=== PATIENT | male | born 1945 | race Caucasian/White ===

== ENCOUNTER 2016-08-03 17:57 | Inpatient (IN) | payer OTHER, BC ==
[~2016-08-03] VITALS: Ht 170.2 cm; Wt 65.2 kg
[~2016-08-03 17:57] MED LIST: CELECOXIB200 MG PO; CIPROFLOXACIN500 M1 PO; CLONAZEPAM0.5 MG PO; FLOMAX0.4 MG PO; LEXAPRO10 MG PO; LISINOPRIL20 MG PO; LISINOPRIL40 MG PO; MOBIC7.5 MG PO; PRESERVISION T1 EACH PO; PROPRANOLOL HCL40 MG PO; SERTRALINE HCL100 MG PO; SERTRALINE HCL50 MG PO; SIMVASTATIN40 MG PO; TIZANIDINE HCL2 MG PO; TYLENOL EXTRA500 MG PO; ZOLPIDEM TARTRA10 MG PO; ZOLPIDEM TARTRAT5 MG PO
[2016-08-03 18:21] LABS: HEMATOCRIT 41.7 % (38.0-50.0); MCHC 33.8 G/DL (30.0-36.0); MCV 85.8 FL (86-99); MEAN PLAT.VOLUME 9.1 uM^3 (9.0-12.4); PLATELET COUNT 344 K/uL (156-360); RBC DIS.WIDTH-CV 12.3 % (11.8-14.6); RBC DIS.WIDTH-SD 38.5 % (39-53); RED BLOOD COUNT 4.86 M/uL (4.00-5.50); WHITE BLOOD COUNT 11.8 K/uL (4.1-10.2)
[2016-08-03 18:29] LABS: CHLORIDE 112 mEq/L (99-109); POTASSIUM 4.4 mEq/L (3.7-5.4); SODIUM 146 mEq/L (136-147)
[2016-08-03 18:31] LABS: GLUCOSE 136 mg/dL (70-99)
[2016-08-03 18:32] LABS: ANION GAP 12 MEQ/L (2-14)
[2016-08-03 18:34] LABS: SERUM ETHYL ALCOHOL < 10 mg/dL
[2016-08-03 18:35] LABS: GFR ESTIMATE (CALCULATED) 58 mL/min/
[2016-08-03 18:36] LABS: UREA NITROGEN (BUN) 28 mg/dL (9-23)
[2016-08-03 19:09] LABS: SALICYLATE < 5.0 MG/DL (15-30)
[2016-08-03] MEDS ORDERED: FLOMAX0.4 MG PO (20:09)
[2016-08-03] MEDS ORDERED: PROPRANOLOL HCL20 MG PO (20:10)
[2016-08-03] MEDS ORDERED: AMBIEN10 MG PO (20:10)
[2016-08-03] MEDS ORDERED: PRIMIDONE50 MG PO (20:10)
[2016-08-03 21:53] LABS: SALICYLATE < 5.0 MG/DL (15-30)
[2016-08-04] VITALS (7 sets, daily range): BP systolic 122–167; BP diastolic 68–96
[2016-08-04 02:43] LABS: ADD MIUA? NO; BILIRUBIN NEGATIVE; BLOOD NEGATIVE; COLOR YELLOW ((YELLOW)); GLUCOSE (STRIP) NEGATIVE; KETONES 5; LEUKOCYTES NEGATIVE; NITRITE NEGATIVE; PROTEIN (STRIP) NEGATIVE; SPECIFIC GRAVITY 1.013 (1.000-1.030); UCUL ADDED? NO; UROBILINOGEN 0.2 MG/DL (0.2-1.0)
[2016-08-04 05:38] LABS: AMPHETAMINES QUANT VALUE 0 NG/ML; BARBITUATES QUANT VALUE 0 NG/ML; BENZODIAZEPINES QUANT VALUE 0 NG/ML; BENZODIAZEPINES, URINE SCREEN Negative (200 ng/mL); MARIJUANA QUANT VALUE 0 NG/ML; OPIATES QUANTITATIVE VALUE 0 NG/ML; PHENCYCLIDINE QUANT VALUE 0 NG/ML
[2016-08-04 07:24] LABS: HEMATOCRIT 31.6 % (38.0-50.0); MCHC 32.9 G/DL (30.0-36.0); RBC DIS.WIDTH-SD 41.8 % (39-53)
[2016-08-04 07:30] LABS: ALKALINE PHOSPHATASE 56 IU/L (3-129); ANION GAP 8 MEQ/L (2-14); CHLORIDE 114 MEQ/L (99-109); GFR ESTIMATE (CALCULATED) > 59 mL/min/; GLUCOSE 108 mg/dL (70-99); POTASSIUM 3.9 MEQ/L (3.7-5.4); SAMPLE HEMOLYSIS CHECK 0; SAMPLE ICTERIC CHECK 0; SAMPLE LIPEMIA CHECK 0; SODIUM 144 MEQ/L (136-147); UREA NITROGEN (BUN) 18 mg/dL (9-23)
[2016-08-04 07:34] LABS: RED BLOOD COUNT 3.59 M/uL (4.00-5.50)
[2016-08-04 07:35] LABS: ANION GAP 8 MEQ/L (2-14); CHLORIDE 114 MEQ/L (99-109); GFR ESTIMATE (CALCULATED) > 59 mL/min/; GLUCOSE 108 mg/dL (70-99); POTASSIUM 3.9 MEQ/L (3.7-5.4); SODIUM 144 MEQ/L (136-147); UREA NITROGEN (BUN) 18 mg/dL (9-23)
[2016-08-04 07:37] LABS: EOSINOPHIL (%) 1.6 % (0-5); EOSINOPHIL COUNT 0.2 K/uL (0-0.3); IMMATURE GRANULOCYTE (%) 0.5 % (0.0-0.7); IMMATURE GRANULOCYTE COUNT 0.1 K/uL; INSTRUMENT ABS NEUTROPHIL CT 8.2 K/uL; LYMPHOCYTE COUNT 1.5 K/uL (1.0-2.8); MEAN PLAT.VOLUME 9.7 uM^3 (9.0-12.4); MONOCYTE (%) 8.8 % (3-12); NEUTROPHIL (%) 74.7 % (45-76); NEUTROPHIL COUNT 8.2 K/uL (1.8-6.4); PLAT.SUFFICIENCY ADEQUATE
[2016-08-04 07:38] LABS: PLATELET COUNT 200 K/uL (156-360)
[2016-08-05 04:13] VITALS: BP 145/83
[2016-08-05 06:59] LABS: HEMATOCRIT 32.6 % (38.0-50.0); MCH 28.9 PG (29.0-34.0); MCHC 33.4 G/DL (30.0-36.0); MCV 86.5 FL (86-99); MEAN PLAT.VOLUME 9.7 uM^3 (9.0-12.4); PLATELET COUNT 218 K/uL (156-360); RBC DIS.WIDTH-CV 12.8 % (11.8-14.6); RBC DIS.WIDTH-SD 40.5 % (39-53); RED BLOOD COUNT 3.77 M/uL (4.00-5.50); WHITE BLOOD COUNT 9.9 K/uL (4.1-10.2)
[2016-08-05 07:25] LABS: ANION GAP 9 MEQ/L (2-14); CHLORIDE 103 MEQ/L (99-109); GFR ESTIMATE (CALCULATED) > 59 mL/min/; GLUCOSE 89 mg/dL (70-99); POTASSIUM 3.4 MEQ/L (3.7-5.4); SAMPLE HEMOLYSIS CHECK 0; SAMPLE ICTERIC CHECK 0; SAMPLE LIPEMIA CHECK 0; SODIUM 139 MEQ/L (136-147); UREA NITROGEN (BUN) 7 mg/dL (9-23)
[2016-08-05 07:52] VITALS: BP 131/68
[2016-08-05 11:32] VITALS: BP 144/81
[2016-08-05 16:01] VITALS: BP 167/86
[2016-08-05 16:17] LABS: D-DIMER ELISA 1.92 mg/L FEU (< 0.57)
[2016-08-05 16:30] LABS: TROP-I INTERPRETATION NEGATIVE; TROPONIN-I < 0.01 ng/mL (0.0-0.30)
[2016-08-05 16:33] LABS: C DIFF TOXIN POSITIVE (NEGATIVE)
[2016-08-05 16:40] LABS: PROBE CHECK PASS
[2016-08-05 19:38] VITALS: BP 123/76
[2016-08-05 20:17] LABS: ADD MIUA? YES; BILIRUBIN NEGATIVE; BLOOD MODERATE; COLOR STRAW ((YELLOW)); GLUCOSE (STRIP) NEGATIVE; KETONES NEGATIVE; LEUKOCYTES NEGATIVE; NITRITE NEGATIVE; PROTEIN (STRIP) NEGATIVE; SPECIFIC GRAVITY 1.002 (1.000-1.030); UROBILINOGEN 0.2 MG/DL (0.2-1.0)
[2016-08-05 20:36] LABS: BACTERIA RARE /HPF; EPITHELIAL CELLS NONE SEEN /HPF; MUCUS TRACE /LPF; RED BLOOD CELLS 30-40 /HPF (0-5); UCUL ADDED? NO
[2016-08-06 00:28] VITALS: BP 109/62
[2016-08-06 04:18] VITALS: BP 128/60
[2016-08-06 05:51] LABS: HEMATOCRIT 31.9 % (38.0-50.0); MCH 29.7 PG (29.0-34.0); MCHC 34.5 G/DL (30.0-36.0); MCV 86.2 FL (86-99); MEAN PLAT.VOLUME 9.5 uM^3 (9.0-12.4); PLATELET COUNT 204 K/uL (156-360); RBC DIS.WIDTH-CV 12.6 % (11.8-14.6); RBC DIS.WIDTH-SD 39.8 % (39-53); WHITE BLOOD COUNT 11.3 K/uL (4.1-10.2)
[2016-08-06 06:25] LABS: ANION GAP 9 MEQ/L (2-14); CHLORIDE 103 MEQ/L (99-109); GFR ESTIMATE (CALCULATED) > 59 mL/min/; GLUCOSE 98 mg/dL (70-99); POTASSIUM 3.2 MEQ/L (3.7-5.4); SAMPLE HEMOLYSIS CHECK 0; SAMPLE ICTERIC CHECK 0; SAMPLE LIPEMIA CHECK 0; SODIUM 138 MEQ/L (136-147); UREA NITROGEN (BUN) 7 mg/dL (9-23)
[2016-08-06 07:46] VITALS: BP 114/64
[2016-08-06 11:23] VITALS: BP 120/69
[2016-08-06 14:54] VITALS: BP 145/75
[2016-08-06 20:00] VITALS: BP 156/89
[2016-08-07] VITALS: BP 126/64
[2016-08-07 07:35] LABS: HEMATOCRIT 29.7 % (38.0-50.0); MCH 28.9 PG (29.0-34.0); MCHC 33.3 G/DL (30.0-36.0); MCV 86.8 FL (86-99); MEAN PLAT.VOLUME 9.1 uM^3 (9.0-12.4); PLATELET COUNT 216 K/uL (156-360); RBC DIS.WIDTH-CV 13.1 % (11.8-14.6); RBC DIS.WIDTH-SD 41.2 % (39-53); RED BLOOD COUNT 3.42 M/uL (4.00-5.50)
[2016-08-07 07:36] LABS: WHITE BLOOD COUNT 5.4 K/uL (4.1-10.2)
[2016-08-07 08:00] VITALS: BP 142/78
[2016-08-07 11:32] VITALS: BP 118/64
[2016-08-08] VITALS: BP 139/68
[2016-08-08 09:44] VITALS: BP 120/78
[2016-08-08 12:05] VITALS: BP 140/70
[2016-08-08] MEDS ORDERED: FLUOXETINE HCL20 MG PO (16:03)
[2016-08-08] MEDS ORDERED: OLANZAPINE5 MG PO (16:03)
[2016-08-08] MEDS ORDERED: PANTOPRAZOLE SO40 MG PO (16:03)
[2016-08-08] MEDS ORDERED: METRONIDAZOLE500 MG PO (16:04)
[2016-08-08] MEDS ORDERED: PEN-VEE K,VEET500 MG PO (16:04)
[2016-08-08] MEDS ORDERED: TAMSULOSIN HCL0.4 MG PO (16:04)
[2016-08-08] MEDS ORDERED: ELIQUIS5 MG PO ×2 (16:06→16:07)
[2016-08-08 17:46] VITALS: BP 147/78
[2016-08-09] VITALS: BP 124/75
[2016-08-09 05:37] VITALS: BP 146/77
[2016-08-09 06:58] LABS: HEMATOCRIT 31.6 % (38.0-50.0); MCH 29.4 PG (29.0-34.0); MCHC 33.2 G/DL (30.0-36.0); MCV 88.5 FL (86-99); PLATELET COUNT 265 K/uL (156-360); RBC DIS.WIDTH-CV 12.9 % (11.8-14.6); RED BLOOD COUNT 3.57 M/uL (4.00-5.50); WHITE BLOOD COUNT 6.1 K/uL (4.1-10.2)
[2016-08-09 07:51] VITALS: BP 140/74
[2016-08-09 12:42] VITALS: BP 148/68
[2016-08-09] MEDS ORDERED: VANCOMYCIN HCL125 MG PO (15:55)
[2016-08-09] MEDS ORDERED: PEN-VEE K,VEET500 MG PO (15:55)
[2016-08-09 16:20] VITALS: BP 136/70
== END 2016-08-09 18:35 | DRG 917 ==
LOC: EME 17:57 → 5WEST 21:42 → EDOF 21:42 → 5WEST 23:16 → 5SOUTH 08-04 10:53 → 5WEST 08-04 10:53 → 5SOUTH 08-04 16:11
PROVIDERS: Emergency Medicine; Hospitalist; Physician Assistant Medical; Specialist
PROC: 0DJ08ZZ Inspection of Upper Intestinal Tract, Via Natural or Artificial Opening Endoscopic (ICD-10-PCS; principal; 2016-08-04)
DX: T54.3X2A Toxic effect of corrosive alkalis and alkali-like substances, intentional self-harm, initial encounter (principal); T65.892A Toxic effect of other specified substances, intentional self-harm, initial encounter; T28.6XXA Corrosion of esophagus, initial encounter; T28.7XXA Corrosion of other parts of alimentary tract, initial encounter; J18.9 Pneumonia, unspecified organism; I26.99 Other pulmonary embolism without acute cor pulmonale; N17.9 Acute kidney failure, unspecified; A04.7 Enterocolitis due to Clostridium difficile; G80.1 Spastic diplegic cerebral palsy; G80.4 Ataxic cerebral palsy; I95.9 Hypotension, unspecified; I10 Essential (primary) hypertension; R13.10 Dysphagia, unspecified; E78.5 Hyperlipidemia, unspecified; F32.9 Major depressive disorder, single episode, unspecified; N40.1 Benign prostatic hyperplasia with lower urinary tract symptoms; R33.9 Retention of urine, unspecified; K29.80 Duodenitis without bleeding; Z91.5 Personal history of self-harm; Z66 Do not resuscitate
CPT/HCPCS: 71010; 71275; 74020; 74177; 74230; 80048; 80053; 80306 90; 81003; 83605; 84484; 85025; 85027; 85379; 85730; 87040; 87493; 92610 GN; 92611 GN; 93005; 99281; 99285; C9113; G0378; G0480; J0456; J0696; J1644; J7030; J7050

== ENCOUNTER 2016-08-09 17:12 | Inpatient (IN) | payer OTHER, BC ==
[~2016-08-09] VITALS: Ht 170.2 cm; Wt 65.2 kg
[~2016-08-09 17:12] MED LIST changes: +AMBIEN10 MG PO; +ELIQUIS5 MG PO; +FLUOXETINE HCL20 MG PO; +METRONIDAZOLE500 MG PO; +OLANZAPINE5 MG PO; +PANTOPRAZOLE SO40 MG PO; +PEN-VEE K,VEET500 MG PO; +PRIMIDONE50 MG PO; +PROPRANOLOL HCL20 MG PO; +TAMSULOSIN HCL0.4 MG PO; +VANCOMYCIN HCL125 MG PO
[2016-08-09 18:56] VITALS: BP 165/90
[2016-08-10 08:39] VITALS: BP 175/81
[2016-08-10 15:42] VITALS: BP 141/66
[2016-08-11 07:52] VITALS: BP 132/83
[2016-08-11 15:27] VITALS: BP 175/86
[2016-08-11 18:14] VITALS: BP 153/80
[2016-08-12 07:55] VITALS: BP 152/89
[2016-08-12] MEDS ORDERED: VANCOMYCIN HCL125 MG PO (10:06)
[2016-08-12] MEDS ORDERED: METRONIDAZOLE500 MG PO (10:06)
[2016-08-12] MEDS ORDERED: OLANZAPINE10 MG PO (10:07)
[2016-08-12] MEDS ORDERED: FLUOXETINE HCL20 MG PO (10:07)
== END 2016-08-12 12:12 | disposition home or self-care (01) | DRG 885 ==
LOC: 5SOUTH 17:12 → 1WEST 18:32
DX: F33.9 Major depressive disorder, recurrent, unspecified (principal); I10 Essential (primary) hypertension; G80.9 Cerebral palsy, unspecified; E78.5 Hyperlipidemia, unspecified; N40.0 Benign prostatic hyperplasia without lower urinary tract symptoms; M19.90 Unspecified osteoarthritis, unspecified site; T65.8 Toxic effect of other specified substances
CPT/HCPCS: 97150 GO; 97165 GO

== ENCOUNTER 2016-08-19 10:23 | Inpatient (IN) | payer OTHER, BC ==
[~2016-08-19] VITALS: Ht 172.7 cm; Wt 63.6 kg
[~2016-08-19 10:23] MED LIST changes: +OLANZAPINE10 MG PO
[2016-08-19 11:27] LABS: EOSINOPHIL (%) 1.3 % (0-5); EOSINOPHIL COUNT 0.1 K/uL (0-0.3); HEMATOCRIT 35.3 % (38.0-50.0); IMMATURE GRANULOCYTE (%) 0.5 % (0.0-0.7); IMMATURE GRANULOCYTE COUNT 0.1 K/uL; INSTRUMENT ABS NEUTROPHIL CT 8.7 K/uL; LYMPHOCYTE COUNT 1.5 K/uL (1.0-2.8); MCH 29.4 PG (29.0-34.0); MCHC 33.4 G/DL (30.0-36.0); MEAN PLAT.VOLUME 9.1 uM^3 (9.0-12.4); MONOCYTE (%) 6.1 % (3-12); MONOCYTE COUNT 0.7 K/uL (0-0.8); NEUTROPHIL (%) 78.7 % (45-76); NEUTROPHIL COUNT 8.7 K/uL (1.8-6.4); RBC DIS.WIDTH-CV 13.2 % (11.8-14.6); RBC DIS.WIDTH-SD 42.6 % (39-53); RED BLOOD COUNT 4.01 M/uL (4.00-5.50)
[2016-08-19 11:28] LABS: PLATELET COUNT 350 K/uL (156-360); WHITE BLOOD COUNT 11.1 K/uL (4.1-10.2)
[2016-08-19 11:34] LABS: CHLORIDE 104 mEq/L (99-109); POTASSIUM 4.6 mEq/L (3.7-5.4); SODIUM 135 mEq/L (136-147)
[2016-08-19 11:36] LABS: GLUCOSE 120 mg/dL (70-99)
[2016-08-19 11:37] LABS: ANION GAP 8 MEQ/L (2-14)
[2016-08-19 11:38] LABS: TOTAL BILIRUBIN 0.8 mg/dL (0.0-1.0)
[2016-08-19 11:39] LABS: SERUM ETHYL ALCOHOL < 10 mg/dL
[2016-08-19 11:40] LABS: GFR ESTIMATE (CALCULATED) > 59 mL/min/
[2016-08-19 11:41] LABS: ALKALINE PHOSPHATASE 58 IU/L (3-129)
[2016-08-19 11:42] LABS: DIRECT BILIRUBIN 0.3 mg/dL (0.0-0.3); UREA NITROGEN (BUN) 17 mg/dL (9-23)
[2016-08-19 11:43] LABS: SALICYLATE < 5.0 MG/DL (15-30)
[2016-08-19 16:36] LABS: ADD MIUA? YES; BILIRUBIN NEGATIVE; BLOOD NEGATIVE; COLOR YELLOW ((YELLOW)); GLUCOSE (STRIP) NEGATIVE; KETONES NEGATIVE; LEUKOCYTES SMALL; NITRITE NEGATIVE; PROTEIN (STRIP) NEGATIVE; SPECIFIC GRAVITY 1.023 (1.000-1.030); UROBILINOGEN 0.2 MG/DL (0.2-1.0)
[2016-08-19 16:41] LABS: BACTERIA NONE SEEN /HPF; EPITHELIAL CELLS NONE SEEN /HPF; MUCUS TRACE /LPF; RED BLOOD CELLS 0-5 /HPF (0-5); WHITE BLOOD CELLS 0-5 /HPF (0-5)
[2016-08-19 16:45] LABS: AMPHETAMINE NEGATIVE (500 ng/mL); BARBITURATES NEGATIVE (200 ng/mL); BENZODIAZEPINES NEGATIVE (150 ng/mL); COCAINE NEGATIVE (150 ng/mL); INTERNAL CONTROLS VALID? YES; METHADONE NEGATIVE (200 ng/mL); METHAMPHETAMINE NEGATIVE (500 ng/mL); OPIATES (MORPHINE) NEGATIVE (100 ng/mL); OXYCODONE NEGATIVE (100 ng/mL); PHENCYCLIDINE NEGATIVE (25 ng/mL); PROPOXYPHENE NEGATIVE (300 ng/mL); THC CANNABINOIDS NEGATIVE (50 ng/mL); TRICYCLIC ANTIDEPRESSANTS NEGATIVE (300 ng/mL)
[2016-08-20 20:54] LABS: C DIFF TOXIN NEGATIVE (NEGATIVE)
[2016-08-20 21:05] LABS: PROBE CHECK PASS; SPECIMEN PROCESSING CONTROL PASS
[2016-08-21 12:19] LABS: EOSINOPHIL (%) 0 % (0-5); HEMATOCRIT 37.8 % (38.0-50.0); IMMATURE GRANULOCYTE (%) 0.4 % (0.0-0.7); INSTRUMENT ABS NEUTROPHIL CT 7.6 K/uL; LYMPHOCYTE COUNT 0.8 K/uL (1.0-2.8); MCH 28.9 PG (29.0-34.0); MCHC 33.6 G/DL (30.0-36.0); MCV 85.9 FL (86-99); MEAN PLAT.VOLUME 9.2 uM^3 (9.0-12.4); MONOCYTE COUNT 0.7 K/uL (0-0.8); NEUTROPHIL (%) 82.5 % (45-76); NEUTROPHIL COUNT 7.6 K/uL (1.8-6.4); PLATELET COUNT 358 K/uL (156-360); RBC DIS.WIDTH-CV 13.3 % (11.8-14.6); RBC DIS.WIDTH-SD 41.4 % (39-53); WHITE BLOOD COUNT 9.2 K/uL (4.1-10.2)
[2016-08-21] MEDS ORDERED: ELIQUIS5 MG PO (12:38)
[2016-08-21] MEDS ORDERED: LEXAPRO10 MG PO (12:40)
[2016-08-21] MEDS ORDERED: TAMSULOSIN HCL0.4 MG PO (12:40)
[2016-08-21 12:41] LABS: CHLORIDE 103 mEq/L (99-109); POTASSIUM 3.7 mEq/L (3.7-5.4); SODIUM 139 mEq/L (136-147)
[2016-08-21 12:42] LABS: GLUCOSE 120 mg/dL (70-99)
[2016-08-21 12:44] LABS: ANION GAP 12 MEQ/L (2-14)
[2016-08-21 12:46] LABS: GFR ESTIMATE (CALCULATED) > 59 mL/min/
[2016-08-21 12:47] LABS: UREA NITROGEN (BUN) 11 mg/dL (9-23)
[2016-08-21 16:45] VITALS: BP 154/87
[2016-08-21 17:33] VITALS: BP 154/87
[2016-08-22 07:50] VITALS: BP 138/79
[2016-08-22 15:36] VITALS: BP 158/90
[2016-08-23 07:37] VITALS: BP 170/96
[2016-08-23 12:05] VITALS: BP 131/75
[2016-08-23 16:05] VITALS: BP 137/82
[2016-08-24 07:57] VITALS: BP 173/97
[2016-08-24 11:50] VITALS: BP 148/82
[2016-08-24 16:06] VITALS: BP 126/73
[2016-08-25 07:44] VITALS: BP 169/102
[2016-08-25 15:48] VITALS: BP 120/71
[2016-08-26 07:36] VITALS: BP 151/97
[2016-08-26] MEDS ORDERED: OLANZAPINE5 MG PO (11:35)
[2016-08-26] MEDS ORDERED: CLONAZEPAM0.5 MG PO (11:35)
== END 2016-08-26 13:20 | disposition home or self-care (01) | DRG 918 ==
LOC: EME 10:23 → EDOF 08-20 11:34 → 1WEST 08-21 11:34
PROVIDERS: Emergency Medicine
DX: T50.902A Poisoning by unspecified drugs, medicaments and biological substances, intentional self-harm, initial encounter (principal); F33.2 Major depressive disorder, recurrent severe without psychotic features; G80.9 Cerebral palsy, unspecified; M19.90 Unspecified osteoarthritis, unspecified site; I10 Essential (primary) hypertension; R25.2 Cramp and spasm; F41.9 Anxiety disorder, unspecified
CPT/HCPCS: 80048; 80076; 81003; 85025; 87493; 90837; 93005; 97150 GO; 97165 GO; 99281; 99285; G0480; J2405; J7030

== ENCOUNTER 2017-11-28 14:12 | Emergency (ER) | payer OTHER, BC ==
[~2017-11-28] VITALS: Ht 167.6 cm; Wt 57.7 kg
[2017-11-28] MEDS ORDERED: TRAZODONE HCL50 MG PO (14:27)
[2017-11-28] MEDS ORDERED: TIAGABINE HCL2 MG PO (14:30)
[2017-11-28] MEDS ORDERED: AMANTADINE100 MG PO (14:31)
[2017-11-28] MEDS ORDERED: DESYREL100 MG PO (15:43)
[2017-11-28] MEDS ORDERED: CLONAZEPAM0.5 MG PO (15:43)
[2017-11-28] MEDS ORDERED: GABITRIL2 MG PO ×2 (15:43→15:46)
[2017-11-28 15:46] LABS: BASOPHIL (%) 0.4 % (0-1); BASOPHIL COUNT 0.1 K/uL (0-0.1); EOSINOPHIL (%) 0.8 % (0-5); EOSINOPHIL COUNT 0.1 K/uL (0-0.3); HEMATOCRIT 40.5 % (38.0-50.0); HEMOGLOBIN 14.2 G/DL (12.5-16.6); IMMATURE GRANULOCYTE (%) 0.6 % (0.0-0.7); LYMPHOCYTE (%) 16.8 % (15-42); LYMPHOCYTE COUNT 1.9 K/uL (1.0-2.8); MCH 30.4 PG (29.0-34.0); MCHC 35.1 G/DL (30.0-36.0); MCV 86.7 FL (86-99); MONOCYTE (%) 7.7 % (3-12); MONOCYTE COUNT 0.9 K/uL (0-0.8); NEUTROPHIL (%) 73.7 % (45-76); NEUTROPHIL COUNT 8.5 K/uL (1.8-6.4); PLATELET COUNT 244 K/uL (156-360); RBC DIS.WIDTH-CV 12.6 % (11.8-14.6); RBC DIS.WIDTH-SD 39.8 % (39-53); RED BLOOD COUNT 4.67 M/uL (4.00-5.50); WHITE BLOOD COUNT 11.5 K/uL (4.1-10.2)
[2017-11-28 15:54] LABS: CHLORIDE 112 mEq/L (99-109); POTASSIUM 3.8 mEq/L (3.7-5.4); SODIUM 150 mEq/L (136-147)
[2017-11-28 15:56] LABS: GLUCOSE 102 mg/dL (70-99)
[2017-11-28 15:59] LABS: CREATININE 1.3 mg/dL (0.6-1.3); GFR ESTIMATE (CALCULATED) 58 mL/min/ (58.99-99999)
[2017-11-28 16:00] LABS: UREA NITROGEN (BUN) 34 mg/dL (9-23)
[2017-11-28 17:35] VITALS: BP 159/85
== END 2017-11-28 17:37 | disposition home or self-care (01) ==
LOC: EME 14:12
PROVIDERS: Emergency Medicine
DX: Z76.0 Encounter for issue of repeat prescription (principal); E86.0 Dehydration; G80.9 Cerebral palsy, unspecified; M19.90 Unspecified osteoarthritis, unspecified site; Z87.19 Personal history of other diseases of the digestive system
CPT/HCPCS: 80048; 85025; 90832; 99281; 99284; J7030